=== PATIENT | female | born 1995 | race Caucasian/White ===

== ENCOUNTER 2023-01-06 18:48 | Inpatient (IN) | payer OTHER ==
[~2023-01-06] VITALS: Ht 162.6 cm; Wt 101.8 kg
[2023-01-06] MEDS ORDERED: IRON18 MG (20:14)
[2023-01-06] MEDS ORDERED: UNISOM PM PAIN1 EACH (20:15)
[2023-01-06] MEDS ORDERED: 1/2 NS 250ml250 ML (20:15)
[2023-01-06] MEDS ORDERED: PRENATAL TABLE1 EAC2 (20:15)
[2023-01-06 22:35] LABS: BASOPHILS ABSOLUTE AUTO 0.03 K/mm3 (0.00-0.23); BASOPHILS PERCENT AUTO 0 % (0-2); EOSINOPHILS ABSOLUTE AUTO 0.08 K/mm3 (0.00-0.68); EOSINOPHILS PERCENT AUTO 1 % (0-6); Hematocrit 38.5 % (33.0-51.0); Hemoglobin 14.2 g/dL (11.5-16.0); IMMATURE GRAN ABSOLUTE AUTO 0.02 K/mm3 (0.00-0.10); IMMATURE GRAN PERCENT AUTO 0 % (0-1); LYMPHOCYTES ABSOLUTE AUTO 3.16 K/mm3 (0.84-5.20); LYMPHOCYTES PERCENT AUTO 32 % (21-46); MONOCYTES ABSOLUTE AUTO 0.41 K/mm3 (0.16-1.47); MONOCYTES PERCENT AUTO 4 % (4-13); Mean Corpuscular HGB 32.4 pg (26.0-34.0); Mean Corpuscular HGB Conc 36.9 g/dL (31.5-36.5); Mean Corpuscular Volume 88 fL (80-100); Mean Platelet Volume 10.5 fL (9.1-12.4); NEUTROPHILS ABSOLUTE AUTO 6.06 K/mm3 (1.96-9.15); NEUTROPHILS PERCENT AUTO 62 % (41-73); Platelet Count 187 K/mm3 (150-400); RDW Coefficient Variation 12.8 % (11.7-14.2); RDW Standard Deviation 41.1 fL (35.1-46.3); Red Blood Cell Count 4.38 M/mm3 (3.80-5.20); White Blood Cell Count 9.76 K/mm3 (4.00-11.30)
[2023-01-08 07:53] LABS: Mean Corpuscular HGB 31.8 pg (26.0-34.0); Mean Corpuscular HGB Conc 35.9 g/dL (31.5-36.5); Mean Corpuscular Volume 89 fL (80-100); Mean Platelet Volume 10.3 fL (9.1-12.4); Platelet Count 174 K/mm3 (150-400); RDW Coefficient Variation 12.8 % (11.7-14.2); RDW Standard Deviation 41.9 fL (35.1-46.3); White Blood Cell Count 14.13 K/mm3 (4.00-11.30)
--- NOTE | 2023-01-08 19:14 | NUR ---
Printed instructions and teacing reviewed, questions answered.
--- NOTE | 2023-01-08 20:46 | NUR ---
2015: PRINTED DISCHARGE INSTRUCTIONS REVIEWED WITH PATIENT AND . ADDITIONAL QUESTIONS AND CONCERNS WERE ANSWERED. MATCHED BAND WITH AND VERIFICATION FORM. DISCHARGE TO HOME TO CARE OF .
== END 2023-01-08 20:15 | disposition home or self-care (01) | DRG 807 ==
LOC: OBS 18:48 → BC 18:49 → OBS 18:50 → BC 19:11
PROVIDERS: ADMIT Advanced Practice Midwife
PROC: 10E0XZZ Delivery of Products of Conception, External Approach (ICD-10-PCS; principal; 2023-01-07)
PROC: 10907ZC Drainage of Amniotic Fluid, Therapeutic from Products of Conception, Via Natural or Artificial Opening (ICD-10-PCS; 2023-01-07)
PROC: 3E0R3BZ Introduction of Anesthetic Agent into Spinal Canal, Percutaneous Approach (ICD-10-PCS; 2023-01-07)
PROC: 00HU33Z Insertion of Infusion Device into Spinal Canal, Percutaneous Approach (ICD-10-PCS; 2023-01-07)
PROC: 0HQ9XZZ Repair Perineum Skin, External Approach (ICD-10-PCS; 2023-01-07)
DX: O34.03 Maternal care for unspecified congenital malformation of uterus, third trimester (principal); Z37.0 Single live birth; Q51.3 Bicornate uterus; O99.824 Streptococcus B carrier state complicating childbirth; O99.344 Other mental disorders complicating childbirth; F41.9 Anxiety disorder, unspecified; O76 Abnormality in fetal heart rate and rhythm complicating labor and delivery; O70.0 First degree perineal laceration during delivery; Z3A.39 39 weeks gestation of pregnancy; Z88.0 Allergy status to penicillin; Z88.8 Allergy status to other drugs, medicaments and biological substances
CPT/HCPCS: 36415; 51702; 85025; 85027; 86850; 86900; 86901; 86923; A9270; J1200; J1885; J2210; J2405; J2590; J3010; J3370; J7050; J7120

== ENCOUNTER 2024-03-20 23:50 | Emergency (ER) | payer BC, OTHER ==
[~2024-03-20] VITALS: Ht 165.1 cm; Wt 81.7 kg
[~2024-03-20 23:50] MED LIST: 1/2 NS 250ml250 ML; IRON18 MG; PRENATAL TABLE1 EAC2; UNISOM PM PAIN1 EACH
[2024-03-21] MEDS ORDERED: Ondansetron HCl 2 MG / ML 2ML Vial IV ONE (00:15)
[2024-03-21] MEDS ORDERED: Dicyclomine HCl 10 MG/ML 2ML Amp IM ONE (00:15)
[2024-03-21] MEDS ORDERED: Ketorolac Tromethamine 15mg Vial IV ONE (00:15)
[2024-03-21] MEDS ORDERED: NS 1,000 ML IV SCH ×2 (00:15→01:00)
[2024-03-21] MEDS ORDERED: Ondansetron HCl 2 MG / ML 2ML Vial ONE (00:52)
[2024-03-21 00:54] LABS: BASOPHILS ABSOLUTE AUTO 0.06 K/mm3 (0.00-0.23); BASOPHILS PERCENT AUTO 0 % (0-2); EOSINOPHILS ABSOLUTE AUTO 0.35 K/mm3 (0.00-0.68); EOSINOPHILS PERCENT AUTO 3 % (0-6); Hematocrit 47.3 % (33.0-51.0); Hemoglobin 16.7 g/dL (11.5-16.0); IMMATURE GRAN ABSOLUTE AUTO 0.03 K/mm3 (0.00-0.10); IMMATURE GRAN PERCENT AUTO 0 % (0-1); LYMPHOCYTES ABSOLUTE AUTO 1.62 K/mm3 (0.84-5.20); LYMPHOCYTES PERCENT AUTO 12 % (21-46); MONOCYTES ABSOLUTE AUTO 0.69 K/mm3 (0.16-1.47); MONOCYTES PERCENT AUTO 5 % (4-13); Mean Corpuscular HGB 31.4 pg (26.0-34.0); Mean Corpuscular HGB Conc 35.3 g/dL (31.5-36.5); Mean Corpuscular Volume 89 fL (80-100); Mean Platelet Volume 9.9 fL (9.1-12.4); NEUTROPHILS ABSOLUTE AUTO 10.79 K/mm3 (1.96-9.15); NEUTROPHILS PERCENT AUTO 80 % (41-73); Platelet Count 241 K/mm3 (150-400); RDW Coefficient Variation 12.4 % (11.7-14.2); RDW Standard Deviation 40.1 fL (35.1-46.3); Red Blood Cell Count 5.32 M/mm3 (3.80-5.20); White Blood Cell Count 13.54 K/mm3 (4.00-11.30)
[2024-03-21 01:03] LABS: Influenza A, PCR NEGATIVE (NEGATIVE); Influenza B, PCR NEGATIVE (NEGATIVE); Resp Syncytial Virus, PCR NEGATIVE (NEGATIVE); SARS-Cov-2 (COVID-19) PCR, MMC NEGATIVE (NEGATIVE)
[2024-03-21 01:18] LABS: Albumin, Blood 3.9 g/dL (3.4-5.0); Bilirubin, Total 0.5 mg/dL (0.1-1.0); Bun/Creatinine Ratio 22.5 (12.0-20.0); Calcium, Blood 9.1 mg/dL (8.5-10.1); Creatinine, Blood 0.71 mg/dL (0.40-1.00); Globulin, Blood 3.9 g/dL (2.2-4.0); Magnesium, Blood 1.1 mg/dL (1.6-2.4); Potassium, Blood 3.7 mmol/L (3.5-5.5); Total Protein, Blood 7.8 g/dL (6.4-8.2)
[2024-03-21] MEDS ORDERED: Magnesium Sulf 2 GM/Water 50ML 50 ML IV ONE (01:25)
[2024-03-21] MEDS ORDERED: Haloperidol Lactate Inj. 5 MG/ML Injection IM ONE (01:30)
[2024-03-21] MEDS ORDERED: MAGNESIUM OXID500 MG PO (02:00)
[2024-03-21] MEDS ORDERED: DICY20 PO (02:00)
[2024-03-21] MEDS ORDERED: COMPAZINE10 MG PO (02:00)
[2024-03-21 02:16] LABS: Source, Urine Clean Catch
[2024-03-21 02:18] LABS: Bilirubin, Urine Neg (Neg); Blood, Urine 1+ (Neg); Glucose Qualitative, Urine Neg (Neg); Ketones, Urine 4+ (Neg); Leukocyte Esterase, Urine Neg (Neg); Nitrite, Urine Neg (Neg); Protein, Urine 2+ (Neg); Specific Gravity, Urine 1.025 (1.003-1.022); Urobilinogen, Urine NORM (Normal)
[2024-03-21 02:23] LABS: Appearance, Urine Turbid (Clear); Color, Urine Yellow (P-Yellow)
[2024-03-21 02:25] LABS: Amorphous Heavy (0-Heavy); Bacteria Few /hpf; Red Blood Cells, Urine 0-2 /hpf (0-2); Squamous Epithelial Cells Few /hpf (Few); White Blood Cells, Urine Not Seen /hpf (0-5)
[2024-03-21 02:30] VITALS: BP 128/71
== END 2024-03-21 02:45 | disposition home or self-care (01) ==
LOC: ER 23:50
PROVIDERS: Emergency Medicine
DX: R11.2 Nausea with vomiting, unspecified (principal); R19.7 Diarrhea, unspecified; E83.42 Hypomagnesemia; Z88.0 Allergy status to penicillin; Z88.6 Allergy status to analgesic agent
CPT/HCPCS: 0241U; 80053; 81001; 81025; 83605; 83735; 85025; 96361; 96365; 96372-59; 96375; 99283; J0500; J1630; J1885; J2405; J3475; J7030

== ENCOUNTER 2024-03-23 17:02 | Emergency (ER) | payer BC, OTHER ==
[~2024-03-23] VITALS: Ht 165.1 cm; Wt 86.2 kg
[~2024-03-23 17:02] MED LIST changes: +COMPAZINE10 MG PO; +DICY20 PO; +MAGNESIUM OXID500 MG PO
[2024-03-23] MEDS ORDERED: Ondansetron HCl 2 MG / ML 2ML Vial IV ONE (17:35)
[2024-03-23] MEDS ORDERED: NS 1,000 ML IV SCH (17:35)
[2024-03-23 18:15] LABS: Hematocrit 41.3 % (33.0-51.0); Hemoglobin 14.4 g/dL (11.5-16.0); Mean Corpuscular HGB 30.7 pg (26.0-34.0); Mean Corpuscular HGB Conc 34.9 g/dL (31.5-36.5); Mean Corpuscular Volume 88 fL (80-100); Mean Platelet Volume 9.5 fL (9.1-12.4); Platelet Count 215 K/mm3 (150-400); RDW Coefficient Variation 12.5 % (11.7-14.2); RDW Standard Deviation 40.2 fL (35.1-46.3); Red Blood Cell Count 4.69 M/mm3 (3.80-5.20); White Blood Cell Count 9.03 K/mm3 (4.00-11.30)
[2024-03-23 18:32] LABS: BASOPHILS ABSOLUTE MAN 0.09 K/mm3 (0.00-0.23); BASOPHILS PERCENT MAN 1 % (0-2); EOSINOPHILS PERCENT MAN 0 % (0-6); LYMPHOCYTES ABSOLUTE MAN 4.87 K/mm3 (0.84-5.20); LYMPHOCYTES PERCENT MAN 54 % (21-46); MONOCYTES ABSOLUTE MAN 0.63 K/mm3 (0.16-1.47); MONOCYTES PERCENT MAN 7 % (4-13); NEUTROPHILS ABSOLUTE MAN 3.43 K/mm3 (1.96-9.15); SEG NEUTROPHILS PERCENT MAN 38 % (41-73); TOTAL CELLS COUNTED 100
[2024-03-23 18:39] LABS: Albumin, Blood 3.5 g/dL (3.4-5.0); Albumin/Globulin Ratio 0.9 (0.8-1.8); Bilirubin, Total 0.3 mg/dL (0.1-1.0); Bun/Creatinine Ratio 9.4 (12.0-20.0); Creatinine, Blood 0.64 mg/dL (0.40-1.00); Globulin, Blood 3.7 g/dL (2.2-4.0); Magnesium, Blood 2.2 mg/dL (1.6-2.4); Potassium, Blood 3.1 mmol/L (3.5-5.5); Total Protein, Blood 7.2 g/dL (6.4-8.2)
[2024-03-23] MEDS ORDERED: Potassium Chloride 20 MEQ TabCR PO ONE (20:10)
[2024-03-23] MEDS ORDERED: PROM25 PO (20:27)
[2024-03-23] MEDS ORDERED: RX Prepack 2 Tabs Ondansetron ODT 4MG UD ONE (20:30)
[2024-03-23 20:34] VITALS: BP 120/78
== END 2024-03-23 20:47 | disposition home or self-care (01) ==
LOC: ER 17:02
PROVIDERS: Physician Assistant
DX: A08.4 Viral intestinal infection, unspecified (principal); E87.6 Hypokalemia; E83.51 Hypocalcemia
CPT/HCPCS: 80053; 83735; 85025; 96361; 96374; 99283-25; A9270; J2405; J7030